=== PATIENT | male | born 1990 | race Caucasian/White ===

== ENCOUNTER 2018-01-18 11:03 | Emergency (ER) | payer OTHER ==
[~2018-01-18] VITALS: Ht 172.7 cm; Wt 53.4 kg
[2018-01-18] MEDS ORDERED: AUGMENTIN875 MG PO (14:31)
[2018-01-18 15:18] VITALS: BP 119/67
== END 2018-01-18 15:19 ==
LOC: EME 11:03
DX: S02.81XA Fracture of other specified skull and facial bones, right side, initial encounter for closed fracture (principal); S02.40EA Zygomatic fracture, right side, initial encounter for closed fracture; S02.40CA Maxillary fracture, right side, initial encounter for closed fracture; S02.2XXA Fracture of nasal bones, initial encounter for closed fracture; S01.111A Laceration without foreign body of right eyelid and periocular area, initial encounter; F19.10 Other psychoactive substance abuse, uncomplicated; T75.4XXA Electrocution, initial encounter; W19.XXXA Unspecified fall, initial encounter; W86.8XXA Exposure to other electric current, initial encounter; Y35.093A Legal intervention involving other firearm discharge, suspect injured, initial encounter; Z23 Encounter for immunization; K02.9 Dental caries, unspecified; G93.89 Other specified disorders of brain; F17.200 Nicotine dependence, unspecified, uncomplicated
CPT/HCPCS: 70450; 70486; 72125; 99281; 99284